=== PATIENT | male | born 1955 | race Caucasian/White ===

== ENCOUNTER 2022-04-27 10:41 | Outpatient (CLI) | payer MEDICARE, OTHER | END 2022-04-27 10:42 | disposition home or self-care (01) | LOC: CSHLAB 10:41 | PROVIDERS: ATTEND Internal Medicine Gastroenterology | DX: Z20.822 Contact with and (suspected) exposure to COVID-19 (principal); K63.5 Polyp of colon | CPT/HCPCS: 87811 ==

== ENCOUNTER 2022-04-30 08:12 | Day surgery (SDC) | payer MEDICARE, OTHER ==
[2022-04-29 09:13] VITALS: BMI 28.3
[2022-04-30] MEDS ORDERED: Lidocaine 1% MPF 2 ML VIAL ONE (08:49)
[2022-04-30] MEDS ORDERED: PROPOFOL 40 ML ONE (10:23)
[2022-04-30] MEDS ORDERED: Lidocaine 2% MPF 10 ML AMP (For Epidural Use) ONE (10:23)
[2022-04-30] MEDS ORDERED: PROPOFOL 20 ML ONE (11:03)
== END 2022-04-30 11:55 | disposition home or self-care (01) ==
LOC: CSHSDC 08:12
PROVIDERS: ATTEND Internal Medicine Gastroenterology
PROC: 0DBK8ZZ Excision of Ascending Colon, Via Natural or Artificial Opening Endoscopic (ICD-10-PCS; principal; 2022-04-30)
PROC: 0DBN8ZZ Excision of Sigmoid Colon, Via Natural or Artificial Opening Endoscopic (ICD-10-PCS; 2022-04-30)
PROC: 0DBM8ZZ Excision of Descending Colon, Via Natural or Artificial Opening Endoscopic (ICD-10-PCS; 2022-04-30)
DX: Z12.11 Encounter for screening for malignant neoplasm of colon (principal); D12.2 Benign neoplasm of ascending colon; D12.4 Benign neoplasm of descending colon; K63.5 Polyp of colon; K57.30 Diverticulosis of large intestine without perforation or abscess without bleeding; K64.9 Unspecified hemorrhoids; I10 Essential (primary) hypertension; E78.5 Hyperlipidemia, unspecified; K21.9 Gastro-esophageal reflux disease without esophagitis; G43.909 Migraine, unspecified, not intractable, without status migrainosus; N40.0 Benign prostatic hyperplasia without lower urinary tract symptoms; Z86.010 Personal history of colon polyps; Z80.0 Family history of malignant neoplasm of digestive organs; Z79.899 Other long term (current) drug therapy; Z20.822 Contact with and (suspected) exposure to COVID-19
CPT/HCPCS: 88305; J2704

== ENCOUNTER 2022-08-11 10:40 | Outpatient (CLI) | payer MEDICARE, OTHER ==
[~2022-08-11 10:40] MED LIST: Iopamidol 300 61% 100 ML VIAL FS ONE
== END 2022-08-11 10:41 | disposition home or self-care (01) ==
LOC: CSHCT 10:40
PROVIDERS: ATTEND Urology
DX: C61 Malignant neoplasm of prostate (principal); N26.1 Atrophy of kidney (terminal); K57.30 Diverticulosis of large intestine without perforation or abscess without bleeding; K31.4 Gastric diverticulum
CPT/HCPCS: 74178; 82565; Q9967

== ENCOUNTER 2022-11-16 13:15 | Outpatient (CLI) | payer MEDICARE, OTHER ==
[~2022-11-16 13:15] MED LIST changes: -Iopamidol 300 61% 100 ML VIAL FS ONE; +Iopamidol-370 76% 500 ML 1 ML ONE
== END 2022-11-16 13:16 | disposition home or self-care (01) ==
LOC: CSHRAD 13:15
PROVIDERS: ATTEND Urology
DX: C61 Malignant neoplasm of prostate (principal)
CPT/HCPCS: 51600; 74430; Q9967